=== PATIENT | male | born 2000 | race Caucasian/White ===

== ENCOUNTER 2024-12-12 19:21 | Emergency (ER) | payer BC, SELFPAY ==
[2024-12-12 19:24] VITALS: BP 110/72; PULSE 99; RESP 18; TEMP 37.1; O2SAT 93; BMI 22.4
--- NOTE | 2024-12-12 19:31 | EDS_ITS ---
HPI History of Present Illness Chief Complaint: General Illness Informant: patient Narrative Narrative: 24-year-old healthy male states he thinks he may have the flu. Symptoms started 4 days ago. Headache, cough, he states his chest is sore from all the coughing but he does not have any symptoms of angina. States sometimes he feels a little short of breath he does not have asthma. He has had some nausea and dry heaving no diarrhea, no abdominal pain. Is been having headaches and subjective fevers and chills but has not measured any fevers and denies any myalgias. PFSH PFSH Medical History no medical history no medical history Home Medications ?Medication ?Instructions ?Recorded ?Last Taken ?Type ondansetron 8 mg disintegrating 8 mg PO Q8H PRN nausea and 12/12/24 Unknown Rx tablet vomiting #12 tabs Allergy/AdvReac Type Severity Reaction Status Date / Time No Known Allergies Allergy Verified 12/12/24 19:23 Family History no significant family his Surgical History no surgical history Social History Smoking Status: Current every day smoker tobacco type: smokeless tobacco ROS ROS ED Constitutional Constitutional ED: Denies chills or fever(s) Eyes Eyes: Denies change in vision ENT ENT ED: Reports nasal congestion, rhinorrhea and sore throat; Denies ear pain Cardiovascular Cardiovascular: Reports chest pain; Denies palpitations Respiratory/Chest Respiratory/Chest: Reports cough and dyspnea Gastrointestinal Gastrointestinal: Reports nausea and vomiting; Denies abdominal pain or diarrhea Genitourinary Genitourinary ED: Denies dysuria or hematuria Musculoskeletal Musculoskeletal: Denies myalgias or neck pain Integumentary Denies abscess or rash Neurologic Neurologic: Reports headache(s); Denies paresthesias or weakness Psychiatric Psychiatric: Denies depression or suicidal thoughts Endocrine Endocrinology: Denies polydipsia or polyuria EXAM Physical Exam Const Vital Signs: 12/12/24 19:24 12/12/24 19:29 Temperature 98.8 F Temperature Source Oral Pulse Rate 99 Respiratory Rate 18 Respiratory Effort Normal Respiratory Pattern Normal Blood Pressure 110/72 Blood Pressure Mean 84 Pulse Ox 93 Oxygen Delivery Method Room Air Positive well nourished and well developed General Appearance ED: well developed and NAD HEENT Reports moist mucous membranes normocephalic and atraumatic Throat: Negative for posterior oropharynx abnormal Eyes PERRL and EOMs intact bilaterally Neck no lymphadenopathy, supple and no meningeal signs Resp normal respiratory effort and clear to auscultation bilaterally Cardio no murmurs Rate: regular rate Rhythm: regular rhythm GI normal to inspection, nondistended, normoactive bowel sounds, non-tender and non-distended Extremity normal to inspection General Extremety ED: Negative for edema or tenderness General Extremity: Negative for edema Neuro oriented x3, CN's II-XII intact bilaterally and no sensory deficits noted Sensorium / Orientation: alert Motor Exam: strength 5/5 throughout Psych mental status grossly normal Skin Lesions: no lesions Rashes: no rashes MDM MDM MDM Narrative Medical decision making narrative: Vital signs are normal and his lungs are clear, pulse ox 93% on room air. I think all of this is consistent with a viral syndrome, there is been high prevalence of influenza recently but also positive RSV, COVID, and metapneumovirus. He is amenable to an RSV/COVID/influenza swab which was sent and in the meantime he was treated with NSAIDs and Zofran. These helped. His swab is positive for influenza A. Tamiflu not indicated due to the timing and the fact that he is healthy. Supportive care advised, given a prescription for Zofran. Discharge Plan Triage Chief Complaint: General Illness ED Provider: Berny Zuniga Dx/Rx/DC Orders Clinical Impression: Influenza A Instructions: ED Influenza (Adult) Prescriptions: New ondansetron 8 mg tablet,disintegrating 8 mg PO Q8H PRN (Reason: nausea and vomiting) Qty: 12 0RF Primary Care Provider: Care Physician,No Primary Referrals: Doctor,Your [Non-Staff] - 1 Week if not improving Print Language: Indonesian Disposition Disposition: Home, Self Care
[2024-12-12] MEDS: Naproxen 500 MG Tablet PO (19:48)
[2024-12-12] MEDS: Ondansetron ODT 4 MG Tablet 8 MG PO (19:48)
[2024-12-12 21:09] VITALS: BP 108/71; PULSE 91; RESP 16; TEMP 36.6; O2SAT 99
== END 2024-12-12 21:10 | disposition home or self-care (01) ==
PROVIDERS: Emergency Provider Emergency Medicine; Visit Provider Emergency Medicine
DX: J10.1 Influenza due to other identified influenza virus with other respiratory manifestations (principal); R11.0 Nausea; F17.220 Nicotine dependence, chewing tobacco, uncomplicated
CPT/HCPCS: 87631; 99284